=== PATIENT | male | born 1970 | race Caucasian/White ===

== ENCOUNTER 2018-12-25 10:24 | Emergency (ER) | payer BC, OTHER ==
[~2018-12-25] VITALS: Ht 195.6 cm; Wt 115.7 kg
[2018-12-25 10:36] VITALS: BP_SYST 155
--- NOTE | 2018-12-25 11:05 | NUR ---
Patient to ER bed h1 for evaluation. Side rails up.
--- NOTE | 2018-12-25 11:07 | NUR ---
Pt AAOx4 ambulated into ED c/o 12/18 R lower back pain radiating to R leg x 1 month. Pt has neurologist appointment later this month, but cannot tolerate the pain with tramadol. No other injuries/complaints per pt/noted. Will continue to monitor.
--- NOTE | 2018-12-25 11:10 | NUR ---
ER Dr. Hamilton at bedside examining patient.
[2018-12-25] MEDS ORDERED: ONDANSETRON 4 MG ODT TAB PO ONE (11:15)
[2018-12-25] MEDS ORDERED: MORPHINE 4 MG/ML INJ. SYRINGE IM ONE (11:15)
--- NOTE | 2018-12-25 11:15 | NUR ---
Pt attempted to provide urine sample. Pt unable to urinate at this time.
--- NOTE | 2018-12-25 11:18 | NUR ---
Medication administered. Pt tolerated well. No adverse reactions noted.
[2018-12-25 12:12] VITALS: BP_SYST 142
== END 2018-12-25 12:12 | disposition home or self-care (01) ==
LOC: SED 10:24
DX: M54.5 Low back pain (principal)
CPT/HCPCS: 96372; 99283; J2270; Q0162